=== PATIENT | female | born 1975 | race Caucasian/White ===

== ENCOUNTER 2016-11-28 18:17 | Emergency (ER) | payer OTHER ==
[~2016-11-28] VITALS: Ht 162.6 cm; Wt 86.2 kg
[~2016-11-28 18:17] MED LIST: ALBUTEROL0.09 MG/A1 INH; ANTIVERT 25 MG25 MG PO; ASPIR 8181 MG PO; CALCIUM + D 6001 TAB PO; DEXMETHYLPHENID30 MG PO; METOPROLOL SUC100 M2 PO; PREDNISONE 20MG20 MG PO; SUMATRIPTAN SU100 MG PO; TESSALON PERLE100 MG PO; TIZANIDINE HCL2 MG PO; ZOFRAN ODT4 MG SL; ZOFRAN4 M1 SL
[2016-11-28 18:30] VITALS: BP 121/82
[2016-11-28] MEDS ORDERED: DEXTROAMP-AMPHE20 M1 PO (18:39)
[2016-11-28] MEDS ORDERED: BUPROPION HCL150 M4 PO (18:40)
[2016-11-28] MEDS ORDERED: ALPRAZOLAM0.25 M1 PO (18:40)
[2016-11-28] MEDS ORDERED: SUMATRIPTAN SU100 M1 PO (18:40)
[2016-11-28] MEDS ORDERED: TIZANIDINE HCL2 M1 PO (18:40)
[2016-11-28] MEDS ORDERED: DOXYCYCLINE HY100 M5 PO (18:41)
[2016-11-28] MEDS ORDERED: [UNRECOGNIZED DRUG - OTHER] TOP (18:41)
[2016-11-28] MEDS ORDERED: ASPIRIN EC81 M1 PO (18:42)
[2016-11-28] MEDS ORDERED: VITAMIN D5000 UNIT PO (18:43)
[2016-11-28] MEDS ORDERED: VITAMIN B-121000 MC3 PO (18:43)
--- NOTE | 2016-11-28 19:39 | ED UPPER/LOWER EXTREMITY COMPL ---
History of Present Illness General Chief Complaint: General Adult Stated Complaint: L ARM SWELLING AND REDNESS Source: patient Exam Limitations: poor historian Vital Signs & Intake/Output Vital Signs & Intake/Output Vital Signs Date Time Temp Pulse Resp B/P B/P Pulse O2 O2 Flow FiO2 Mean Ox Delivery Rate 11/28 1830 97.4 100 18 121/82 97 Room Air Allergies Coded Allergies: cefaclor (From [facility]) (HIVES 11/28/16) Reconcile Medications Alprazolam 0.25 MG TABLET 1 TAB PO PRN ANXIETY (Reported) Aspirin (Ecotrin*) 81 MG TABLET.DR 1 TAB PO DAILY BLOOD - TESTED + ANTIPHOSPHOLI (Reported) Bupropion HCl (Bupropion HCl Sr) 150 MG TABLET.ER 1 TAB PO BID MENTAL HEALTH (Reported) Cholecalciferol (Vitamin D3) (Vitamin D) 5,000 UNIT TABLET 1 TAB PO DAILY SUPPLEMENT (Reported) Cyanocobalamin (Vitamin B-12) (Unknown Strength) TABLET (Unknown Dose) PO DAILY SUPPLEMENT (Reported) Dextroamphetamine/Amphetamine (Dextroamp-Amphet ER 20 MG Cap) 20 MG CAP.ER.24H 1 CAP PO BID STIMULANT (Reported) Doxycycline Hyclate 100 MG TABLET.DR 1 TAB PO DAILY ACNE (Reported) Metoprolol Succinate 100 MG TAB.ER.24H 1 TAB PO DAILY MIGRAINES (Reported) Sumatriptan Succinate 100 MG TABLET 1 TAB PO AD PRN MIGRAINES (Reported) may repeat in 2 hours; do not exceed 200 mg in 24 hours Tizanidine HCl 2 MG TABLET 3 CAP PO QHS MUSCLE SPASMS (Reported) Tretinoin Microspheres (Retin-A Micro Pump) 0.08 % GEL.W.PUMP 1 TRINIDAD TOP PRN SKIN (Reported) Triage Note: PT TO TRIAGE WITH C/O LEFT ARM PAIN 6/10 xWEEK, +NUMBNESS, REDNESS TO UPPER LEFT ARM. VSS. NO INJURY. Triage Nurses Notes Reviewed? yes : No Patient currently breastfeeds: No HPI: Patient presents for evaluation of left arm swelling and pain/paresthesias that began about 1 week ago. The pain is described as constant although she cannot really explain what the pain feels like. She cannot say whether or not it changes with movement. It is a combination of a pain and a numb feeling "like it's falling asleep". Patient denies any associated trauma, fever, cold symptoms, unusual activities, slurred speech or facial droop. She is complaining of numbness of the left ear that began today. Nothing seems to make the pain improve including use of Naprosyn twice daily. Past History Travel History Traveled to [place] past 21 day No Medical History Any Pertinent Medical History? see below for history Neurological: migraine, multiple sclerosis Other Medical Hx: Question of lupus or multiple sclerosis Surgical History Surgical History: cHIARI MALFORMATION SURGERY Psychosocial History What is your primary language Malawian Tobacco Use: Never used ETOH Use: occasional use Illicit Drug Use: denies illicit drug use Family History Hx Contributory? No Review of Systems Review of Systems Constitutional: Reports: no symptoms. EENTM: Reports: no symptoms. Respiratory: Reports: no symptoms. Cardiovascular: Reports: no symptoms. Gastrointestinal/Abdominal: Reports: no symptoms. Genitourinary: Reports: no symptoms. Musculoskeletal: Reports: see HPI. Skin: Reports: no symptoms. Neurological/Psychological: Reports: no symptoms. Hematologic/Endocrine: Reports: no symptoms. Immunological: Reports: no symptoms. All Other Systems: Reviewed and Negative Physical Exam Physical Exam General Appearance: SEE BELOW Comments: Gen.: Well-nourished, well-developed, no acute respiratory distress. Head: Normocephalic, atraumatic. Eyes: Normal inspection bilaterally Ears: Normal inspection bilaterally Nose: Normal inspection, nasal cannula in place Throat/mouth : Moist mucosa Neck: Supple, full range of motion, no goiter Heart: Regular rate and rhythm Lungs: Quiet respirations Back: Normal range of motion Extremities: Left upper extremity: Mild redness over the area of the triceps ( patient noted to rub the area frequently) without appreciable warmth or soft tissue swelling. The left upper extremity is neurovascular intact distally with normal sensation to light touch throughout the fingers, normal hand grasp strength, normal deep tendon reflexes, normal radial and brachial pulses, normal capillary refill. Neurologic: Cranial nerves grossly intact, speech is clear Skin: warm and dry Psychiatric: Calm, cooperative, no apparent delusions or hallucinations Progress Differential Diagnosis: cellulitis, contusion, DVT, fracture, CERVICAL RADICULOPATHY, cva Plan of Care: Orders Procedure Date/time Status [facility] SED RATE 11/28 1937 Complete D-DIMER 11/28 1937 Complete CREATINE PHOSPHOKINASE 11/28 1937 Complete CBC WITHOUT DIFFERENTIAL 11/28 1937 Complete BASIC METABOLIC PANEL 11/28 1937 Complete Laboratory Tests 11/28/16 2010: Anion Gap 10, Estimated GFR > 60, BUN/Creatinine Ratio 17.1, Glucose 81, Calcium 9.6, Creatine Kinase 101, D-Dimer High Sensitivty < 200, CBC w Diff NO MAN DIFF REQ, RBC 4.79, MCV 87.9, MCH 29.3, RDW 13.5, MPV 9.8, Gran % 72.0, Lymphocytes % 20.6, Monocytes % 6.2, Eosinophils % 0.8, Basophils % 0.4, Absolute Granulocytes 5.8, Absolute Lymphocytes 1.7, Absolute Monocytes 0.5, Absolute Eosinophils 0.1, Absolute Basophils 0, PUBS MCHC 33.3, ESR Westergren 5 Diagnostic Imaging: Discussed w/RAD: CT Scan. Radiology Impression: PATIENT: PATY LAZO PRESENT AGE: 41 PATIENT ACCOUNT NO: [id number] : 77 LOCATION: [facility] ORDERING PHYSICIAN: JAMAL TOVAR MD SERVICE DATE: 11/28/16 EXAM TYPE: CAT - CT CERV SPINE WO IV CONTRAST; CT HEAD WO IV CONTRAST EXAMINATION: CT HEAD WITHOUT CONTRAST CT CERVICAL SPINE WITHOUT CONTRAST CLINICAL INFORMATION: 41-year-old woman with left arm pain and paresthesias. COMPARISON: 06/10/2016 brain MRI TECHNIQUE: Imaging was performed from the skull base to vertex without intravenous administration of contrast. In addition, helical noncontrast CT imaging was acquired through the cervical spine and source images were reviewed along with axial reconstructions and sagittal and coronal MPRs. DLP: 967 mGy-cm FINDINGS: HEAD: There has been prior suboccipital craniectomy for decompression of a Chiari I malformation. The cerebellar tonsils remain slightly low lying. No intracranial mass, hemorrhage, or midline shift is visualized. The ventricles and sulci are age-appropriate. No extra-axial collections are identified. The paranasal sinuses and mastoid air cells are well aerated. CERVICAL SPINE: The posterior arch of C1 has also been resected as part of the patient's Chiari decompression. There is no evidence of acute cervical spine fracture. Vertebral bodies remain normal in height and intervertebral disc spaces are preserved. There is straightening of the normal cervical lordosis. No pre- or paravertebral soft tissue abnormality is identified. Limited assessment of the lung apices is unremarkable. IMPRESSION: 1. No acute intracranial pathology. 2. No CT evidence of acute cervical spine fracture or traumatic subluxation. DICTATED BY: RAD KWON MD DATE/TIME DICTATED:11/28/162045 COLLEGE SPECIALIST:NAMITA DATE/TIME TRANSCRIBED:11/28/162045 CONFIDENTIAL, DO NOT COPY WITHOUT APPROPRIATE AUTHORIZATION. <Electronically signed in Other Vendor System> SIGNED BY: RAD KWON MD 11/28/162057 Comments: 11/28/2016 10:36:27 PM I have updated Paty on her test results. The cause of her pain is unclear at this point. We have discussed the possibility of undeclared shingles or cellulitis. I have asked that she follow up with her primary care physician for further evaluation. Departure Departure Disposition: HOME OR SELF CARE Condition: Stable Clinical Impression Primary Impression: Left arm pain Referrals: MARGUERITE BYERS MD (PCP/Family) Additional Instructions: Continue the Naprosyn 2 tablets twice daily as needed for pain. Add Tramadol as prescribed if needed. Follow-up with your primary care physician for reevaluation this week. Return if any concerns or sudden worsening. Please note that there might be incidental findings in your evaluation that are unrelated to the current emergency department visit. Please notify your primary care doctor about this emergency department visit in order to obtain and review all of the testing performed so that these incidental findings can be monitored as needed. If you had an x-ray performed, please understand that some fractures may not be seen on the initial set of x-rays. If your symptoms persist you might need a repeat set of x-rays to check for such a fracture. If you had a laceration evaluated, please understand that foreign bodies such as glass or wood may not be visible to the naked eye or on plain x-rays. If the wound becomes red, swollen, increasingly more painful or if there is any drainage from the wound, please have it reevaluated by a physician for the possibility of a retained foreign body. Thank you for choosing the [facility] for your care. It was a pleasure to serve you today. Jamal Tovar M.D. [facility] Departure Forms: Customer Survey General Discharge Information
[2016-11-28 20:19] LABS: ABSOLUTE BASOPHIL COUNT 0 /CUMM (0.0-0.2); ABSOLUTE EOSINOPHIL COUNT 0.1 /CUMM (0.0-0.7); ABSOLUTE GRANULOCYTE CT 5.8 /CUMM (1.4-6.5); ABSOLUTE LYMPH COUNT 1.7 /CUMM (1.2-3.4); ABSOLUTE MONOCYTE COUNT 0.5 /CUMM (0.10-0.60); BASOPHIL % 0.4 % (0.0-2.0); EOSINOPHIL % 0.8 % (0-5); HEMATOCRIT 42.1 % (37-47); MEAN CORPUSCULAR HGB 29.3 PG (27.0-31.0); MEAN CORPUSCULAR HGB CONC 33.3 G/DL (33.0-37.0); MEAN CORPUSCULAR VOLUME 87.9 FL (81.0-99.0); MEAN PLATELET VOLUME 9.8 FL (7.4-10.4); PLATELET COUNT 257 /CUMM (130-400); RBC DISTRIBUTION WIDTH 13.5 % (11.5-14.5); RED BLOOD CELL CT 4.79 /CUMM (4.20-5.40); WHITE BLOOD CELL COUNT 8.1 /CUMM (4.8-10.8)
--- NOTE | 2016-11-28 20:58 | CT SCAN REPORT ---
EXAMINATION: CT HEAD WITHOUT CONTRAST CT CERVICAL SPINE WITHOUT CONTRAST CLINICAL INFORMATION: 41-year-old woman with left arm pain and paresthesias. COMPARISON: 06/10/2016 brain MRI TECHNIQUE: Imaging was performed from the skull base to vertex without intravenous administration of contrast. In addition, helical noncontrast CT imaging was acquired through the cervical spine and source images were reviewed along with axial reconstructions and sagittal and coronal MPRs. DLP: 967 mGy-cm FINDINGS: HEAD: There has been prior suboccipital craniectomy for decompression of a Chiari I malformation. The cerebellar tonsils remain slightly low lying. No intracranial mass, hemorrhage, or midline shift is visualized. The ventricles and sulci are age-appropriate. No extra-axial collections are identified. The paranasal sinuses and mastoid air cells are well aerated. CERVICAL SPINE: The posterior arch of C1 has also been resected as part of the patient's Chiari decompression. There is no evidence of acute cervical spine fracture. Vertebral bodies remain normal in height and intervertebral disc spaces are preserved. There is straightening of the normal cervical lordosis. No pre- or paravertebral soft tissue abnormality is identified. Limited assessment of the lung apices is unremarkable. IMPRESSION: 1. No acute intracranial pathology. 2. No CT evidence of acute cervical spine fracture or traumatic subluxation.
--- NOTE | 2016-11-28 22:31 | RADIOLOGY REPORT ---
EXAMINATION: XR HUMERUS, LEFT CLINICAL INFORMATION: Left arm pain. COMPARISON: None. TECHNIQUE: AP and lateral views of the left humerus. FINDINGS: No acute fracture or dislocation of the left humerus. Questionable smooth periosteal thickening along the mid shaft of the left humerus. No cortical destruction. Soft tissues appear unremarkable. No radiopaque foreign bodies are identified. IMPRESSION: No acute fracture or dislocation of the left humerus. There is questionable smooth periosteal thickening along the radial aspect of the mid left humerus. No cortical destruction is identified. A dedicated noncontrast CT of the right humerus may be obtained for further evaluation. A contrast enhanced MRI of the left humerus may be warranted depending on the results of the noncontrast CT of the left humerus.
[2016-11-28] MEDS ORDERED: ULTRAM50 M1 PO (22:53)
== END 2016-11-28 22:55 ==
LOC: ERH 18:17
PROVIDERS: Emergency Medicine
DX: M79.602 Pain in left arm (principal)
CPT/HCPCS: 73060-LT